=== PATIENT | female | born 1965 | race Hispanic/Latino ===

== ENCOUNTER 2017-11-24 18:30 | Emergency (ER) | payer BC ==
[2017-11-24] MEDS ORDERED: ALBUTEROL 2.5 MG/3 ML NEB SOL ONE (19:04)
[2017-11-24] MEDS ORDERED: IPRATROPIUM BROM 0.5MG/2.5ML ONE (19:05)
--- NOTE | 2017-11-24 19:42 | RAD REPORT ---
EXAM DESCRIPTION: RAD - Chest Pa And Lat (2 Views) - 11/24/2017 7:17 pm CLINICAL HISTORY: Cough and congestion, body aches, chills COMPARISON: None. TECHNIQUE: PA and lateral views of the chest were obtained. FINDINGS: The lungs are clear of focal mass or consolidation. No failure or volume overload. Interst itial markings are prominent with the baseline for the patient unknown. Heart size is normal and ce ntral vasculature is within normal limits. No pleural effusion or pneumothorax seen. No acute bony finding noted. No aortic abnormality. IMPRESSION: Baseline exam showing prominent interstitial markings. Mild viral infiltrate or mild int erstitial edema cannot be excluded. No focal consolidation to suspect bacterial pneumonia.
--- NOTE | 2017-11-24 20:09 | ER ---
Nurse's Notes [facility] Name: Joan Fontenot Age: 52 yrs Sex: Female : 1965 Arrival Date: 11/24/2017 Time: 18:34 Bed 30 Private MD: SURAJ MCCORMACK Diagnosis: Acute upper respiratory infection, unspecified Presentation: 11/24 18:37 Presenting complaint: Patient states: cough, sinus pressure, bodyaches, chills. Was sv seen at [place] [facility] on Wednesday and Wednesday and dx w/ viral and bronchitis/sinusitis/sore throat, sent home with prescriptions and does not feel any better. Transition of care: patient was not received from another setting of care. Onset of symptoms was November 18, 2017. Care prior to arrival: None. 18:37 Method Of Arrival: Ambulatory sv 18:37 Acuity: SARA 4 sv 18:41 Risk Assessment: Do you want to hurt yourself or someone else? Patient reports no tw2 desire to harm self or others. Initial Sepsis Screen: Does the patient meet any 2 criteria? No. Patient's initial sepsis screen is negative. Does the patient have a suspected source of infection? No. Patient's initial sepsis screen is negative. Historical: - Allergies: 18:38 No Known Allergies; sv - Home Meds: 18:38 None [Active]; sv - PMHx: 18:38 None; sv - Immunization history:: Adult Immunizations up to date. - Social history:: Smoking status: Patient/guardian denies using tobacco. - Ebola Screening: : No symptoms or risks identified at this time. Screenin:41 Abuse screen: Denies threats or abuse. Nutritional screening: No deficits noted. tw2 Tuberculosis screening: No symptoms or risk factors identified. Fall Risk None identified. Assessment: 19:01 General: Appears in no apparent distress. comfortable, slender, well groomed, well tl3 developed, well nourished, Behavior is calm, cooperative, appropriate for age. Pain: Denies pain. Neuro: Level of Consciousness is awake, alert, obeys commands, Oriented to person, place, time, situation, Appropriate for age. Cardiovascular: Patient's skin is warm and dry. Respiratory: Airway is patent Respiratory effort is even, unlabored, Respiratory pattern is regular, symmetrical, Breath sounds are clear bilaterally. Respiratory: Reports cough that is labored breathing. GI: No signs and/or symptoms were reported involving the gastrointestinal system. : No signs and/or symptoms were reported regarding the genitourinary system. EENT: No signs and/or symptoms were reported regarding the EENT system. Derm: No signs and/or symptoms reported regarding the dermatologic system. Musculoskeletal: No signs and/or symptoms reported regarding the musculoskeletal system. 19:56 Reassessment: Patient appears in no apparent distress at this time. No changes from aj1 previously documented assessment. Patient and/or family updated on plan of care and expected duration. Pain level reassessed. Patient is alert, oriented x 3, equal unlabored respirations, skin warm/dry/pink. Kassidy at bedside discussing POC with pt. Vital Signs: 18:39 BP 147 / 97; Pulse 93; Resp 18; Temp 98.7; Pulse Ox 99% ; Weight 90.72 kg; Height 5 ft. sv 2 in. (157.48 cm); Pain 5/10; 19:56 BP 120 / 84; Pulse 93; Resp 18; Pulse Ox 98% on R/A; aj1 18:39 Body Mass Index 36.58 (90.72 kg, 157.48 cm) sv ED Course: 18:34 Patient arrived in ED. sb2 18:34 SURAJ MCCORMACK is Private Physician. sb2 18:38 Triage completed. sv 18:38 Arm band placed on right wrist. sv 18:40 Patient placed in an exam room. sv 18:41 Bed in low position. Call light in reach. tw2 18:44 Chichi Kelly FNP-C is [facility]. kb 18:44 Fernanda Gore MD is Attending Physician. kb 18:47 Shana Akins, ALISA is Primary Nurse. tl3 19:01 No provider procedures requiring assistance completed. Patient did not have IV access tl3 during this emergency room visit. 19:16 X-ray completed. Patient tolerated procedure well. ml 19:18 Chest Pa And Lat (2 Views) XRAY In Process Unspecified. EDMS Administered Medications: 19:01 Drug: Albuterol 2.5 mg Route: Inhalation; tl3 20:02 Follow up: Response: No adverse reaction aj1 19:01 Drug: AtroVENT Aerosol 0.5 mg Route: Inhalation; tl3 20:02 Follow up: Response: No adverse reaction aj1 Outcome: 20:08 Discharge ordered by MD. ramos 20:15 Patient left the ED. aj1 Signatures: Dispatcher [employer] Chichi Payne, NURSE STAFFPippa SINGHP-Anaid Garrett, RN RN aj1 Ruthie Subramanian, RN RN Lisandra Polanco Tara, RN RN tw2 Deidre Adrian 2 Shana Akins RN RN tl3
--- NOTE | 2017-11-24 20:09 | EDPHYS ---
Physician Documentation [facility] Name: Joan Fontenot Age: 52 yrs Sex: Female : 1965 Arrival Date: 11/24/2017 Time: 18:34 Bed 30 Private MD: SURAJ MCCORMACK ED Physician Fernanda Gore HPI: 11/24 18:59 This 52 yrs old Female presents to ER via Ambulatory with complaints of Flu kb Symptoms. 18:59 The patient or guardian reports cough, that is intermittent, described as mild, with no kb sputum, flu symptoms, low-grade fever, myalgias. Onset: The symptoms/episode began/occurred 1 week(s) ago. Severity of symptoms: At their worst the symptoms were moderate, in the emergency department the symptoms are unchanged. Modifying factors: The symptoms are alleviated by nothing, the symptoms are aggravated by nothing. Associated signs and symptoms: Pertinent positives: nausea, rhinorrhea, sore throat, Pertinent negatives: chest pain, diarrhea, ear ache, fever, vomiting. The patient has not experienced similar symptoms in the past. The patient has been recently seen by a physician: the ER physician, out of Town, 1 week(s) ago, with similar presenting complaints, and apparently given a diagnosis of bronchitis, given zithromax, but the patient's symptoms have persisted. Historical: - Allergies: 18:38 No Known Allergies; sv - Home Meds: 18:38 None [Active]; sv - PMHx: 18:38 None; sv - Immunization history:: Adult Immunizations up to date. - Social history:: Smoking status: Patient/guardian denies using tobacco. - Ebola Screening: : No symptoms or risks identified at this time. ROS: 19:01 Neck: Negative for injury, pain, and swelling, Cardiovascular: Negative for chest pain, kb palpitations, and edema, Abdomen/GI: Negative for abdominal pain, nausea, vomiting, diarrhea, and constipation, Back: Negative for injury and pain, : Negative for injury, bleeding, discharge, and swelling, MS/Extremity: Negative for injury and deformity, Skin: Negative for injury, rash, and discoloration, Neuro: Negative for headache, weakness, numbness, tingling, and seizure. 19:01 Constitutional: Positive for body aches, fatigue, malaise, Negative for chills, fever, poor PO intake, weight loss. 19:01 ENT: Positive for rhinorrhea, sinus congestion, sore throat. 19:01 Respiratory: Positive for cough, Negative for dyspnea on exertion, hemoptysis, orthopnea, pleurisy, shortness of breath, wheezing. Exam: 19:02 Constitutional: This is a well developed, well nourished patient who is awake, alert, kb and in no acute distress. Head/Face: Normocephalic, atraumatic. ENT: Nares patent. No nasal discharge, no septal abnormalities noted. Tympanic membranes are normal and external auditory canals are clear. Oropharynx with no redness, swelling, or masses, exudates, or evidence of obstruction, uvula midline. Mucous membranes moist. Neck: Trachea midline, no thyromegaly or masses palpated, and no cervical lymphadenopathy. Supple, full range of motion without nuchal rigidity, or vertebral point tenderness. No Meningismus. Chest/axilla: Normal chest wall appearance and motion. Nontender with no deformity. No lesions are appreciated. Cardiovascular: Regular rate and rhythm with a normal S1 and S2. No gallops, murmurs, or rubs. Normal PMI, no JVD. No pulse deficits. Respiratory: Lungs have equal breath sounds bilaterally, clear to auscultation and percussion. No rales, rhonchi or wheezes noted. No increased work of breathing, no retractions or nasal flaring. Abdomen/GI: Soft, non-tender, with normal bowel sounds. No distension or tympany. No guarding or rebound. No evidence of tenderness throughout. Skin: Warm, dry with normal turgor. Normal color with no rashes, no lesions, and no evidence of cellulitis. MS/ Extremity: Pulses equal, no cyanosis. Neurovascular intact. Full, normal range of motion. Neuro: Awake and alert, GCS 15, oriented to person, place, time, and situation. Cranial nerves II-XII grossly intact. Motor strength 5/5 in all extremities. Sensory grossly intact. Cerebellar exam normal. Normal gait. Vital Signs: 18:39 BP 147 / 97; Pulse 93; Resp 18; Temp 98.7; Pulse Ox 99% ; Weight 90.72 kg; Height 5 ft. sv 2 in. (157.48 cm); Pain 5/10; 19:56 BP 120 / 84; Pulse 93; Resp 18; Pulse Ox 98% on R/A; aj1 18:39 Body Mass Index 36.58 (90.72 kg, 157.48 cm) sv MDM: 18:44 Patient medically screened. kb 19:01 Data reviewed: vital signs, nurses notes. Data interpreted: Pulse oximetry: on room air kb is 99 %. Interpretation: normal. 20:08 Counseling: I had a detailed discussion with the patient and/or guardian regarding: the kb historical points, exam findings, and any diagnostic results supporting the discharge/admit diagnosis, lab results, radiology results, the need for outpatient follow up, a family practitioner, to return to the emergency department if symptoms worsen or persist or if there are any questions or concerns that arise at home. 11/24 18:50 Order name: Flu; Complete Time: 19:21 kb 11/24 18:50 Order name: Strep; Complete Time: 19:19 kb 11/24 18:50 Order name: Chest Pa And Lat (2 Views) XRAY; Complete Time: 19:45 kb 11/24 19:19 Order name: Throat Culture EDMS Administered Medications: 19:01 Drug: Albuterol 2.5 mg Route: Inhalation; tl3 20:02 Follow up: Response: No adverse reaction aj1 19:01 Drug: AtroVENT Aerosol 0.5 mg Route: Inhalation; tl3 20:02 Follow up: Response: No adverse reaction aj1 Disposition: 11/24/17 20:08 Discharged to Home. Impression: Acute upper respiratory infection, unspecified. - Condition is Stable. - Discharge Instructions: Upper Respiratory Infection, Adult, [id number]. - Prescriptions for Prednisone 20 mg Oral Tablet - take 1 tablet by ORAL route once daily for 5 days; 5 tablet. Tessalon Perles 100 mg Oral Capsule - take 1 capsule by ORAL route every 8 hours As needed; 15 capsule. Albuterol Sulfate 90 mcg/actuation - inhale 1-2 puff by INHALATION route every 4-6 hours; 1 Inhaler. - Work release form, Medication Reconciliation Form, Thank You Letter, Antibiotic Education, Prescription Opioid Use form. - Follow up: Emergency Department; When: As needed; Reason: Worsening of condition. Follow up: Private Physician; When: 2 - 3 days; Reason: Recheck today's complaints, Continuance of care, Re-evaluation by your physician. Addendum: 11/28/2017 18:23 Co-signature as Attending Physician, Fernanda Gore MD. m a2 Signatures: Dispatcher [employer] Chichi Payne, CAROLINE-Ashely SINGHP-Anaid Garrett RN RN aj1 Ruthie Subramanian, RN RN Fernanda Chambers MD MD ma2 Shana Aikns RN RN tl3 Corrections: (The following items were deleted from the chart) 11/24 20:15 20:08 11/24/2017 20:08 Discharged to Home. Impression: Acute upper respiratory aj1 infection, unspecified. Condition is Stable. Forms are Medication Reconciliation Form, Thank You Letter, Antibiotic Education, Prescription Opioid Use. Follow up: Emergency Department; When: As needed; Reason: Worsening of condition. Follow up: Private Physician; When: 2 - 3 days; Reason: Recheck today's complaints, Continuance of care, Re-evaluation by your physician. kb
== END 2017-11-24 20:15 | disposition home or self-care (01) ==
LOC: ER 18:30
DX: J06.9 Acute upper respiratory infection, unspecified (principal)
CPT/HCPCS: 71046; 87070; 87081; 87804; 99284

== ENCOUNTER 2018-12-25 19:33 | Emergency (ER) | payer BC, OTHER ==
[2018-12-25] MEDS ORDERED: CODEINE 30MG/APAP 300MG TAB ONE (20:58)
--- NOTE | 2018-12-25 21:20 | ER ---
Nurse's Notes [facility] Name: Joan Fontenot Age: 53 yrs Sex: Female : 1965 Arrival Date: 12/25/2018 Time: 19:35 Bed 14 Private MD: Diagnosis: Distal right fibula avulsion fracture Presentation: 12/25 19:48 Presenting complaint: Patient states: walking outside in the parking lot, hit the curb rv and sprained the right ankle. did not hit head and does not take any blood thinner. Care prior to arrival: None. Mechanism of Injury: Fall. 19:48 Acuity: SARA 4 rv 19:48 Method Of Arrival: Wheelchair rv 19:54 Transition of care: patient was not received from another setting of care. Onset of rv symptoms was December 25, 2018 at 19:00. Risk Assessment: Do you want to hurt yourself or someone else? Patient reports no desire to harm self or others. Initial Sepsis Screen: Does the patient meet any 2 criteria? No. Patient's initial sepsis screen is negative. Does the patient have a suspected source of infection? No. Patient's initial sepsis screen is negative. 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 - Social history:: Smoking status: Patient/guardian denies using tobacco, never smoked. - Ebola Screening: : No symptoms or risks identified at this time. Screenin:53 Abuse screen: Denies threats or abuse. Denies injuries from another. Nutritional rv screening: No deficits noted. Tuberculosis screening: No symptoms or risk factors identified. Fall Risk None identified. Assessment: 19:52 General: Appears in no apparent distress. comfortable, Behavior is calm, cooperative. rv Pain: Complains of pain in right ankle. Neuro: Level of Consciousness is awake, alert, obeys commands, Oriented to person, place, time, situation. Cardiovascular: Patient's skin is warm and dry. Respiratory: Airway is patent. GI: No signs and/or symptoms were reported involving the gastrointestinal system. : No signs and/or symptoms were reported regarding the genitourinary system. EENT: No signs and/or symptoms were reported regarding the EENT system. Derm: Skin is intact. Musculoskeletal: Swelling present in right ankle. Vital Signs: 19:49 BP 137 / 78; Pulse 79; Resp 18; Temp 99.2; Pulse Ox 96% ; rv 22:01 BP 133 / 82; Pulse 73; Resp 17; Pulse Ox 98% on R/A; rv ED Course: 19:35 Patient arrived in ED. ag3 19:42 Akshat Lazaro NP is PHCP. pm1 19:42 Reinaldo Alex MD is Attending Physician. pm1 19:47 Artie Powers RN is Primary Nurse. rv 19:49 Triage completed. rv 19:54 Arm band placed on right wrist. Affected limb iced. rv 19:54 Patient has correct armband on for positive identification. Bed in low position. Call rv light in reach. Side rails up X 1. Pulse ox on. NIBP on. 20:31 XRAY Ankle RIGHT 3 view In Process Unspecified. EDMS 21:39 No provider procedures requiring assistance completed. Patient did not have IV access rv during this emergency room visit. Orthoglass splint: stirrup splint applied on right leg. Administered Medications: 21:03 Drug: Tylenol #3 (300 mg-30 mg) 2 tabs {Note: rass 0.} Route: PO; rv 21:39 Follow up: Response: No adverse reaction; Marked relief of symptoms; Pain is decreased; rv RASS: Alert and Calm (0) Outcome: 21:20 Discharge ordered by . pm1 21:40 Discharged to home via wheelchair, with crutches. rv 21:40 Condition: good 21:40 Discharge instructions given to patient, Instructed on discharge instructions, follow up and referral plans. medication usage, crutch walking, Demonstrated understanding of instructions, follow-up care, medications, crutch walking, splint care. 21:40 Prescriptions given X 1. rv 22:02 Patient left the ED. rv Signatures: Dispatcher [employer] EDMS Akshat Lazaro NP TOOL POLISHING MACHINE OPERATOR pm1 Artie Powers RN RN rv Lisy Villa ag3 Corrections: (The following items were deleted from the chart) 21:02 21:02 Tylenol #3 (300 mg-30 mg) 2 tabs PO rv rv
--- NOTE | 2018-12-25 21:20 | EDPHYS ---
Physician Documentation [facility] Name: Joan Fontenot Age: 53 yrs Sex: Female : 1965 Arrival Date: 12/25/2018 Time: 19:35 Bed 14 Private MD: ED Physician Reinaldo Alex HPI: 12/25 20:49 This 53 yrs old Female presents to ER via Wheelchair with complaints of Fall pm1 Injury. 20:49 The patient presents with pain, swelling. The complaints affect the right ankle. Onset: pm1 The symptoms/episode began/occurred just prior to arrival. Context: The problem was sustained outside, tripped on curb, The mechanism of injury involved inversion of the affected ankle. The patient is unable to bear weight. Associated signs and symptoms: Pertinent positives: swelling, of the right ankle, Pertinent negatives: calf tenderness, numbness, tingling. Modifying factors: The symptoms are alleviated by elevation of extremity, the symptoms are aggravated by weight bearing. The patient has not experienced similar symptoms in the past. No headache, head injury, neck pain, LOC. 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 - Social history:: Smoking status: Patient/guardian denies using tobacco, never smoked. - Ebola Screening: : No symptoms or risks identified at this time. ROS: 20:49 Constitutional: Negative for fever, chills, and weight loss, Eyes: Negative for injury, pm1 pain, redness, and discharge, ENT: Negative for injury, pain, and discharge, Neck: Negative for injury, pain, and swelling, Cardiovascular: Negative for chest pain, palpitations, and edema, Respiratory: Negative for shortness of breath, cough, wheezing, and pleuritic chest pain, Abdomen/GI: Negative for abdominal pain, nausea, vomiting, diarrhea, and constipation, Back: Negative for injury and pain. 20:49 Skin: Negative for injury, rash, and discoloration, Neuro: Negative for headache, weakness, numbness, tingling, and seizure. 20:49 MS/extremity: Positive for of the right ankle lateral aspect, Negative for decreased range of motion, deformity. Exam: 20:49 Constitutional: This is a well developed, well nourished patient who is awake, alert, pm1 and in no acute distress. Head/Face: Normocephalic, atraumatic. Neck: Trachea midline, no thyromegaly or masses palpated, and no cervical lymphadenopathy. Supple, full range of motion without nuchal rigidity, or vertebral point tenderness. No Meningismus. Chest/axilla: Normal chest wall appearance and motion. Nontender with no deformity. No lesions are appreciated. Cardiovascular: Regular rate and rhythm with a normal S1 and S2. No gallops, murmurs, or rubs. Normal PMI, no JVD. No pulse deficits. Respiratory: Lungs have equal breath sounds bilaterally, clear to auscultation and percussion. No rales, rhonchi or wheezes noted. No increased work of breathing, no retractions or nasal flaring. Back: No spinal tenderness. No costovertebral tenderness. Full range of motion. Skin: Warm, dry with normal turgor. Normal color with no rashes, no lesions, and no evidence of cellulitis. 20:49 Musculoskeletal/extremity: Extremities: grossly normal except: noted in the lateral aspect of right ankle: There is no evidence of decreased ROM, deformity. 20:49 Neuro: Orientation: is normal, Motor: is normal, moves all fours, Sensation: is normal, no obvious gross deficits. Vital Signs: 19:49 BP 137 / 78; Pulse 79; Resp 18; Temp 99.2; Pulse Ox 96% ; rv 22:01 BP 133 / 82; Pulse 73; Resp 17; Pulse Ox 98% on R/A; rv Procedures: 22:05 Splinting: Splint applied to right ankle using Orthoglass splint, applied by tech. pm1 Examined by me, post splint application: neurovascular intact, 2+ distal pulses palpable, brisk capillary refill noted, Patient tolerated well. MDM: 19:45 Patient medically screened. pm1 21:12 Data reviewed: vital signs. Data interpreted: Pulse oximetry: on room air is 96 %. pm1 Interpretation: normal. Counseling: I had a detailed discussion with the patient and/or guardian regarding: the historical points, exam findings, and any diagnostic results supporting the discharge/admit diagnosis, radiology results, the need for outpatient follow up, a orthopedic surgeon, to return to the emergency department if symptoms worsen or persist or if there are any questions or concerns that arise at home. 12/25 19:48 Order name: XRAY Ankle RIGHT 3 view rv 12/25 21:12 Order name: Splint - Ankle: Orthoglass: Stirrup; Complete Time: 21:39 pm1 12/25 21:12 Order name: Crutches; Complete Time: 21:39 pm1 Administered Medications: 21:03 Drug: Tylenol #3 (300 mg-30 mg) 2 tabs {Note: rass 0.} Route: PO; rv 21:39 Follow up: Response: No adverse reaction; Marked relief of symptoms; Pain is decreased; rv RASS: Alert and Calm (0) Disposition: 22:52 Co-signature as Attending Physician, Reinaldo Alex MD. Disposition: 12/25/18 21:20 Discharged to Home. Impression: Distal right fibula avulsion fracture. - Condition is Stable. - Discharge Instructions: Ankle Fracture, Cast or Splint Care, Adult, Crutch Use. - Prescriptions for Tylenol- Codeine #3 300-30 mg Oral Tablet - take 2 tablets by ORAL route every 6 hours As needed; 20 tablet. - Medication Reconciliation Form, Thank You Letter, Antibiotic Education, Prescription Opioid Use form. - Follow up: Emergency Department; When: As needed; Reason: Worsening of condition. Follow up: Private Physician; When: 2 - 3 days; Reason: Recheck today's complaints, Continuance of care, Re-evaluation by your physician. - Problem is new. - Symptoms have improved. Signatures: Dispatcher [employer] EDMS Akshat Lazaro, EDITOR SCHOOL PHOTOGRAPH EDITOR SCHOOL PHOTOGRAPH pm1 Reinaldo Alex MD MD Artie Powers RN RN rv Corrections: (The following items were deleted from the chart) 22:02 21:20 12/25/2018 21:20 Discharged to Home. Impression: Distal right fibula avulsion rv fracture. Condition is Stable. Forms are Medication Reconciliation Form, Thank You Letter, Antibiotic Education, Prescription Opioid Use. Follow up: Emergency Department; When: As needed; Reason: Worsening of condition. Follow up: Private Physician; When: 2 - 3 days; Reason: Recheck today's complaints, Continuance of care, Re-evaluation by your physician. Problem is new. Symptoms have improved. pm1
[2018-12-25 22:12] VITALS: BP 133/82; O2SAT 98
[2018-12-25 22:14] VITALS: TEMP 99.2
--- NOTE | 2018-12-26 08:10 | RAD REPORT ---
EXAM DESCRIPTION: RAD - Ankle Right 3 View - 12/25/2018 8:31 pm CLINICAL HISTORY: Right ankle pain, trauma COMPARISON: None. FINDINGS: No gross fracture deformity is seen. There is a small focus of cortical irregularity at th e anterior margin of the tibia at the tibiotalar joint line. A small bone avulsion is suspected. Liam elation is needed with pain localizing to the anterior joint line. No other evidence for fracture. Dome of the talus is normally positioned. No joint effusion seen. No joint space narrowing. Mild lateral soft tissue swelling present. IMPRESSION: Suspected small 4-5 mm bone avulsion from the anterior margin of the tibia at the tibiot alar joint.
== END 2018-12-25 22:02 | disposition home or self-care (01) ==
LOC: ER 19:33
PROC: 2W3QX1Z Immobilization of Right Lower Leg using Splint (ICD-10-PCS; principal; 2018-12-25)
DX: S82.831A Other fracture of upper and lower end of right fibula, initial encounter for closed fracture (principal); W01.0XXA Fall on same level from slipping, tripping and stumbling without subsequent striking against object, initial encounter; Y93.9 Activity, unspecified; Y92.9 Unspecified place or not applicable
CPT/HCPCS: 99284

== ENCOUNTER 2022-05-29 11:12 | Emergency (ER) | payer OTHER ==
--- OUTSIDE RECORDS SUMMARY | 2022-05-29 11:15 | XMS REPORT | Continuity of Care Document ---
:1965 Author Organization [facility] t Address [address] [place] [address] Care Team Providers Name Role Phone Syed Rosario Attending Clinician Unavailable MIRNAREEN_ARSEN Attending Clinician Unavailable Physician, No Primary or Family Admitting Clinician Unavaila ble MIRNAREEN_JENNIFERA Admitting Clinician Unavailable Payers Payer Name Policy Type Policy Number Effective Date Expiration Date S crys [id number] 2014 00:[place]:00 [place] Problems This patient has no known problems. Allergies, Adverse Reactions, Alerts Allergy Allergy Status Severity Reaction(s) Onset Inactive Treating Comm ents Source Name Type Date Date Clinician No Known DA Active U 2020-0 [facility] [place] [facility] No Known DA Active U 2020-0 [facility] [place] [facility] Medications This patient has no known medications. Procedures This patient has no known procedures. Encounters Start End Encounter Admission Attending Care Care Encounter Source Date/Time Date/Time Type Type Clinicians Facility Department ID 2019-07-20 Inpatient SILVIA Cherry SURG [id number] [facility] 14:30:00 [facility]ed [facility] 2021-09-16 2021-09-16 [place] [id number] [place] 04:34:00 04:34:00 [facility] 2021-09-16 2021-09-16 Out[place] [facility] [id number] [place] 04:34:00 04:34:00 [facility] 2021-07-04 2021-07-04 Outpatient [facility] [id number] [place] 12:50:00 12:50:00 [facility] 2020-06-03 2020-06-03 Outpatient SILVIA Rosario [facility] [id number] [facility] 11:55:37 11:55:37 [facility]ed [facility] Results Test Description Test Time Test Comments Results Result Sourc e Comments - MRI LW JNT W/O 2020-06-03 CONT RT 13:06:00 [facility] : 1965 Sex: F Patient Name: VALERIANO SAHNI Unit No: [id number] EXAMS: CPT CODE: [id number] MRI LW JNT W/[place] [address] MRI RIGHT ANKLE DIAGNOSIS: 1. 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 There is focal thinning of the overlying subchondral bone plate without evidence of collapse. 2. There is mild to moderate distal posterior tibial tendon tenosynovitis. 3. There is moderate to marked tenosynovitis of the peroneal tendons at the level of and distal to the lateral malleolus. There is also tendinosis of the distal peroneus longus tendon. 4. There is focal chronic appearing thickening of the medial band proximal plantar fascia suggesting changes secondary to chronic plantar fasciitis. 5. Focal degenerative subcortical cystic change involves the superior aspect of the cuboid adjacent to the calcaneocuboid joint. INDICATION: PAIN COMPARISON: None TECHNIQUE: Multiplanar, multisequence MRI is obtained of the right ankle without contrast. FINDINGS: Laterally, the anterior and posterior talofibular ligaments are intact. The calcaneofibular ligament is intact. The anterior and the posterior syndesmotic ligaments are intact. The superior and inferior peroneal retinacula are intact. Tenosynovitis and tendinosis of the peroneus longus and brevis tendons are intact. Medially, the deltoid ligament is intact. The spring ligament is intact. Tenosynovitis of the distal posterior tibial tendon. The flexor digitorum longus and flexor hallucis longus tendons are intact. The tibialis anterior tendon and extensor tendons are intact. The sinus tarsi is normal. No fluid in the retrocalcaneal bursa. No high-grade narrowing of the tibiotalar joint is seen. The Lisfranc ligament is intact. The Achilles tendon is intact. Findings involving the plantar fascia are as described. There is no evidence of muscular edema or atrophy. Focal OCD lesion medial talar dome as described above. [facility] NAME: VALERIANO SAHNI [address] PHYS: Syed Berg MD : 1965 AGE: 54 SEX: F [place], [place] [address] LOC: Y.MRI PHONE #: [phone] EXAM DATE: 06/03/2020 STATUS: REG CLI FAX #: [phone] RAD #: D/C DT PAGE 1 Signed Report (CONTINUED) Patient Name: VALERIANO SAHNI Unit No: [id number] EXAMS: CPT CODE: [id number] MRI LW JNT W/[place] [address] (Continued) at 1306 Reported and signed by: Issa Scott MD CC: Syed Rosario MD Technologist: Tom Olivares(R) Transcribed D/ (1306) ShivaGVG [facility] NAME: DARIN SAHNI[address] PHYS: Seyd Berg MD : 1965 AGE: 54 SEX: F [place] [address] LOC: Y.MRI PHONE #: [phone] EXAM DATE: 06/03/2020 STATUS: REG CLI FAX #: [phone] RAD #: D/C DT PAGE 2 Signed Report Patient Name: VALERIANO SAHNI Unit No: [id number] EXAMS: CPT CODE: [id number] MRI LW JNT W/[place] [address] (Continued) Orig Print D/T: S: 06/03/2020 (1309) [facility] NAME: SAHNI[address] PHYS: Syed Berg MD : 1965 AGE: 54 SEX: F [place] [address] LOC: Y.MRI PHONE #: [phone] EXAM DATE: 06/03/2020 STATUS: REG CLI FAX #: [phone] RAD #: D/C DT PAGE 3 Signed Report - XR CHEST 1 V 2019-07-20 Patient Name: 13:02:00 VALERIANO SAHNI Unit No: [id number] EXAMS: CPT CODE: [id number] XR CHEST 1 V 91947 IMAGES PROVIDED: One frontal view of the chest is provided. COMPARISON: None FINDINGS: The lungs are grossly clear. No pneumothorax or pleural effusion. No focal consolidation is visualized. Cardiac silhouette is accentuated by decreased lung volume. Coronary vasculature is upper limits of normal. No acute osseous abnormality. IMPRESSION: No acute findings. at 1302 Reported and signed by: Horacio Ashford M.D. CC: Syed Rosario MD; Ceasar Escalera MD Technologist: SALEEM DHILLON. RT(R) Transcribed D/ (4886) ShivaSLJ [facility] NAME: VALERIANO SAHNI [address] [place] [address] PHYS: Ceasar Hoffman MD : 1965 AGE: 53 SEX: F [place] [address] LOC: [facility] PHONE #: [phone] EXAM DATE: 07/20/2019 STATUS: REG [facility] FAX #: [phone] RAD #: D/C DT PAGE 1 Signed Report Patient Name: VALERIANO SAHNI Unit No: [id number] EXAMS: CPT CODE: [id number] XR CHEST 1 V 87833 (Continued) Orig Print D/T: S: 07/20/2019 (8546) [facility] NAME: VALERIANO SAHNI [address] [place] [address] PHYS: Ceasar Hoffman MD : 1965 AGE: 53 SEX: F [place] [address] LOC: [facility] PHONE #: [phone] EXAM DATE: 07/20/2019 STATUS: REG [facility] [place] #: [phone] RAD #: D/C DT PAGE 2 Signed Report Coronavirus 2018 nCoV Bedside 2019-07-20 12:49:00 Test Item Value Reference Range Interpretation Comme nts Coronavirus 2019 nCoV Bedside (test code = COVNONPUIBED) Negative
[2022-05-29] MEDS ORDERED: ONDANSETRON 4 MG/2 ML VIAL ONE (11:23)
[2022-05-29] MEDS ORDERED: MORPHINE 4 MG/ML SYR ONE ×2 (11:23→12:04)
--- NOTE | 2022-05-29 12:32 | RAD REPORT ---
EXAM DESCRIPTION: RAD - Knee Left 3 View - 05/29/2022 12:20 pm CLINICAL HISTORY: PAIN COMPARISON: No comparisons TECHNIQUE: Left knee, 3 views. FINDINGS: Transverse fracture across the patella with distraction of the superior fragment. Mild com minution along the inferior fragment. Prominent soft tissue swelling anteriorly, could reflect a smal l hematoma. .No joint effusion seen. No joint space narrowing. IMPRESSION: Transverse fracture across the patella. Mild comminution of the inferior fragment. Distr action and superior displacement of the superior fragment. Probable soft tissue hematoma in the inter vening space.
--- NOTE | 2022-05-29 13:13 | ER ---
Nurse's Notes [facility] Name: Joan Fontenot Age: 56 yrs Sex: Female : 1965 Arrival Date: 05/29/2022 Time: 11:13 Bed 4 Private MD: Diagnosis: Fracture of patella Presentation: 05/29 11:13 Chief complaint: Patient states: Slip on oily surface 30 min [employer]IST[employer]. L knee pain since. No ll1 LOC or head injury. Coronavirus screen: Vaccine status: Patient reports receiving the 2nd dose of the covid vaccine. Client denies travel out of the [place] in the last 14 days. At this time, the client does not indicate any symptoms associated with coronavirus-19. Ebola Screen: Patient denies travel to an Ebola-affected area in the 21 days before illness onset. Initial Sepsis Screen: Does the patient meet any 2 criteria? No. Patient's initial sepsis screen is negative. Does the patient have a suspected source of infection? No. Patient's initial sepsis screen is negative. Risk Assessment: Do you want to hurt yourself or someone else? Patient reports no desire to harm self or others. Onset of symptoms was May 29, 2022. 11:13 Method Of Arrival: EMS: [facility] ll1 11:13 Acuity: SARA 3 ll1 Triage Assessment: 11:15 General: Appears uncomfortable, Behavior is calm, cooperative, appropriate for age. ll1 Pain: Complains of pain in L knee Quality of pain is described as aching. Musculoskeletal: Circulation, motion, and sensation intact. Capillary refill < 3 seconds, Tenderness present in L knee. Injury Description: Bruise sustained to left leg. Historical: - Allergies: 11:15 No Known Allergies; ll1 - PMHx: 11:15 None; ll1 - PSHx: 11:15 None; ll1 - Immunization history:: Adult Immunizations up to date. - Social history:: Smoking status: Patient denies any tobacco usage or history of. - Family history:: not pertinent. Screenin:24 [facility] ED Fall Risk Assessment (Adult) History of falling in the last 3 months, ll1 including since admission Yes- single mechanical fall (1 pt) Impaired Gait Yes (1 pt) Mobility Assist Device Used Yes (1 pt) Score/Fall Risk Level 3 or more points = High Risk Oriented to surroundings, Maintained a safe environment, Educated pt \T\ family on fall prevention, incl call for assistance when getting out of bed, Hourly rounding (assess needs \T\ fall precautionary measures) done, Remained with patient while ambulating. Abuse screen: Denies threats or abuse. Nutritional screening: No deficits noted. Tuberculosis screening: No symptoms or risk factors identified. Assessment: 11:24 Reassessment: No changes from previously documented assessment. Patient and/or family ll1 updated on plan of care and expected duration. Pain level reassessed. Patient is alert, oriented x 3, equal unlabored respirations, skin warm/dry/pink. 11:53 Reassessment: No changes from previously documented assessment. Patient and/or family ll1 updated on plan of care and expected duration. Pain level reassessed. Patient is alert, oriented x 3, equal unlabored respirations, skin warm/dry/pink. 12:03 Reassessment: No changes from previously documented assessment. Patient and/or family ll1 updated on plan of care and expected duration. Pain level reassessed. Patient is alert, oriented x 3, equal unlabored respirations, skin warm/dry/pink. 12:50 Reassessment: No changes from previously documented assessment. Patient and/or family ll1 updated on plan of care and expected duration. Pain level reassessed. Patient is alert, oriented x 3, equal unlabored respirations, skin warm/dry/pink. 12:58 Reassessment: No changes from previously documented assessment. urinated on bed [place]. ll1 Tolerated well. Vital Signs: 11:13 BP 116 / 76; Pulse 100; Resp 18; Temp 98; Pulse Ox 100% ; Pain 10/10; ll1 12:03 BP 131 / 76; Pulse 96; Resp 17; Pulse Ox 98% on R/A; ll1 12:50 BP 139 / 91; Pulse 91; Pulse Ox 94% on R/A; ll1 11:13 Pain Scale: Adult ll1 ED Course: 11:13 Patient arrived in ED. ll1 11:13 Baudilio Snyder MD is Attending Physician. rt 11:15 Triage completed. ll1 11:15 America Reyes, ALISA is Primary Nurse. ll1 11:16 Arm band placed on Patient placed in an exam room, on a stretcher. ll1 11:25 No provider procedures requiring assistance completed. Inserted saline lock: 20 gauge ll1 in right antecubital area, using aseptic technique. Blood collected. 12:03 Patient has correct armband on for positive identification. Bed in low position. Call ll1 light in reach. Side rails up X2. Client placed on continuous cardiac and pulse oximetry monitoring. NIBP monitoring applied. 12:22 Knee Left 3 View XRAY In Process Unspecified. EDMS 13:12 Timo Rodriguez MD is Referral Physician. rt Administered Medications: 11:25 Drug: morphine IVP or IV 4 mg Route: IVP; Infused Over: 4 mins; Site: right antecubital;ll1 12:02 Follow up: Response: No adverse reaction; Pain is decreased; RASS: Alert and Calm (0) ll1 11:25 Drug: Ondansetron IVP 4 mg Route: IVP; Site: right antecubital; ll1 12:02 Follow up: Response: No adverse reaction ll1 12:02 Drug: morphine IVP or IV 4 mg {Note: pain 5/10 RASS 0.} Route: IVP; Infused Over: 4 ll1 mins; Site: right antecubital; 12:58 Follow up: Response: No adverse reaction; Pain is decreased; RASS: Alert and Calm (0) ll1 Medication: 11:25 VIS not applicable for this client. ll1 Outcome: 13:13 Discharge ordered by . rt Signatures: Dispatcher [employer] Penny, ALISA RN ll1 Baudilio Snyder MD MD rt
--- NOTE | 2022-05-29 13:13 | EDPHYS ---
Physician Documentation [facility] Name: Joan Fontenot Age: 56 yrs Sex: Female : 1965 Arrival Date: 05/29/2022 Time: 11:13 Bed 4 Private MD: ED Physician Baudilio Snyder HPI: 05/29 11:23 This 56 yrs old Female presents to ER via EMS with complaints of Knee Injury. rt 11:23 Patient presents to the ED with slip and fall. She states that she slipped on an Radha rt surface, causing her to fall. She denies hitting her head. She states that she felt a pop at her left knee causing a significant amount of pain. She adamantly denies knee dislocation, denies hip pain. Denies other acute complaints at this time. Pain is aching nature, nonradiating, severe in severity, no other aggravating or alleviating factors.. Historical: - Allergies: 11:15 No Known Allergies; ll1 - PMHx: 11:15 None; ll1 - PSHx: 11:15 None; ll1 - Immunization history:: Adult Immunizations up to date. - Social history:: Smoking status: Patient denies any tobacco usage or history of. - Family history:: not pertinent. ROS: 11:23 Constitutional: Negative for fever, chills, and weight loss, Neck: Negative for injury, rt pain, and swelling, Cardiovascular: Negative for chest pain, palpitations, and edema, Respiratory: Negative for shortness of breath, cough, wheezing, and pleuritic chest pain, Abdomen/GI: Negative for abdominal pain, nausea, vomiting, diarrhea, and constipation, Back: Negative for injury and pain, Skin: Negative for injury, rash, and discoloration, Neuro: Negative for headache, weakness, numbness, tingling, and seizure, Psych: Negative for depression, anxiety, suicide ideation, homicidal ideation, and hallucinations. 11:23 MS/extremity: Positive for injury or acute deformity, pain. Exam: 11:23 Musculoskeletal/extremity: Swelling, tenderness to the left knee, no hip tenderness, no rt other tenderness in the left lower extremity. Pulses, motor, sensation intact.. Vital Signs: 11:13 BP 116 / 76; Pulse 100; Resp 18; Temp 98; Pulse Ox 100% ; Pain 10/10; ll1 12:03 BP 131 / 76; Pulse 96; Resp 17; Pulse Ox 98% on R/A; ll1 12:50 BP 139 / 91; Pulse 91; Pulse Ox 94% on R/A; ll1 11:13 Pain Scale: Adult ll1 MDM: 11:13 Patient medically screened. rt 05/29 11:16 Order name: IV Saline Lock; Complete Time: 11:16 ll1 05/29 11:15 Order name: Knee Left 3 View XRAY; Complete Time: 12:34 rt 05/29 13:12 Order name: Crutches rt Administered Medications: 11:25 Drug: morphine IVP or IV 4 mg Route: IVP; Infused Over: 4 mins; Site: right antecubital;ll1 12:02 Follow up: Response: No adverse reaction; Pain is decreased; RASS: Alert and Calm (0) ll1 11:25 Drug: Ondansetron IVP 4 mg Route: IVP; Site: right antecubital; ll1 12:02 Follow up: Response: No adverse reaction 1 12:02 Drug: morphine IVP or IV 4 mg {Note: pain 5/10 RASS 0.} Route: IVP; Infused Over: 4 ll1 mins; Site: right antecubital; 12:58 Follow up: Response: No adverse reaction; Pain is decreased; RASS: Alert and Calm (0) ll1 Disposition Summary: 05/29/22 13:13 Discharge Ordered Location: Home rt Problem: new rt Symptoms: have improved rt Condition: Stable rt Diagnosis - Fracture of patella rt Followup: rt - With: Timo Rodriguez MD - When: 5 - 6 days - Reason: Forms: - Medication Reconciliation Form rt - Thank You Letter rt - Antibiotic Education rt - Prescription Opioid Use rt Signatures: Dispatcher [employer] Penny, RN RN ll1 Baudilio Snyder MD MD rt
[2022-05-29] MEDS ORDERED: HYDROCODONE/APAP 10/325 TAB ONE (13:20)
[2022-05-29] MEDS ORDERED: KETOROLAC 30 MG/ML INJ ONE (13:20)
[2022-05-29 16:08] VITALS: TEMP 98
[2022-05-29 16:41] VITALS: BP 139/91; O2SAT 94
== END 2022-05-29 14:11 | disposition home or self-care (01) ==
LOC: ER 11:12
DX: S82.002A Unspecified fracture of left patella, initial encounter for closed fracture (principal)
CPT/HCPCS: 73562; 96375; 96374; 99284; J2405